=== PATIENT | male | born 1965 | race African-American/Black ===

== ENCOUNTER 2017-02-15 07:57 | Day surgery (SDC) | payer BC ==
[2017-02-11 15:42] VITALS: BMI 29.2
[~2017-02-15 07:57] MED LIST: LACTATED RINGERS 1,000 ML IV SCH
[2017-02-15] MEDS ORDERED: LIDOCAINE 1% 20 ML VIAL (10MG/ML) FOR IV START INTRADERMA ONE (08:23)
[2017-02-15 08:25] VITALS: TEMP 98.6
[2017-02-15] MEDS ORDERED: PROPOFOL 10 MG/ML 20 ML VIAL IV ONE (09:05)
--- NOTE | 2017-02-15 09:18 | P.GSHP ---
History of Present Illness H&P Date: 02/15/17 Chief Complaint: Screening colonoscopy This a 52-year-old male referred from Dr. joel. Patient presents today for screening colonoscopy. He is ever had a colonoscopy before. He denies any significant GI complaints. Past Medical History Past Medical History: Hypertension, Osteoarthritis (OA) History of Any Multi-Drug Resistant Organisms: None Reported Past Surgical History: Tonsillectomy Additional Past Surgical History / Comment(s): CYST REMOVED FROM TONSIL Past Anesthesia/Blood Transfusion Reactions: No Reported Reaction Smoking Status: Never smoker - Past Family History Mother Family Medical History: No Reported History Medications and Allergies Home Medications Medication Instructions Recorded Confirmed Type Cholecalciferol [Vitamin D3] 1,000 unit PO DAILY 02/11/17 02/11/17 History Multivitamins, Thera [Multivitamin 1 tab PO DAILY 02/11/17 02/11/17 History (formulary)] Vitamin B Complex 1 each PO DAILY 02/11/17 02/11/17 History amLODIPine [Norvasc] 10 mg PO DAILY 02/11/17 02/11/17 History Allergies Allergy/AdvReac Type Severity Reaction Status Date / Time Penicillins Allergy Dyspnea,SWE Verified 02/15/17 08:15 [facility] - Exam Vital Signs Temp Pulse Resp BP Pulse Ox 98.6 F 60 16 110/86 99 02/15/17 08:23 02/15/17 08:23 02/15/17 08:23 02/15/17 08:23 02/15/17 08:23 - General well developed, no distress - Eyes PERRL - ENT normal pinna - Neck no masses - Respiratory normal expansion - Cardiovascular Rhythm: regular - Abdomen Abdomen: soft, non tender Assessment and Plan Assessment: We'll perform screening colonoscopy.
--- NOTE | 2017-02-15 09:31 | P.OP ---
Date of Procedure: 02/15/17 Preoperative Diagnosis: Screening colonoscopy Postoperative Diagnosis: Normal Colonoscopy Procedure(s) Performed: Colonoscopy Anesthesia: MAC Surgeon: Chay Champagne Pathology: none sent Condition: stable Disposition: PACU Description of Procedure: PROCEDURE: The patient was placed on the endoscopy table in the lateral position. Digital rectal examination was performed which revealed no abnormalities. The prostate was symmetrical without nodules. Flexible colonoscope was then placed in the patient's anus and passed throughout the entire colon. The ileocecal valve was visualized. The cecum, ascending, transverse, descending and sigmoid colon were normal. The rectum was normal as well. There were no masses, polyps or diverticula noted in the entire colon. SUMMARY OF FINDINGS: Normal colonoscopy.
[2017-02-15 09:34] VITALS: BP 105/69; PULSE 66; RESP 18
== END 2017-02-15 10:10 | disposition home or self-care (01) ==
LOC: ORWHC2ENDO 07:57
PROVIDERS: ATTEND Surgery
DX: Z12.11 Encounter for screening for malignant neoplasm of colon (principal); I10 Essential (primary) hypertension; M19.90 Unspecified osteoarthritis, unspecified site; Z88.0 Allergy status to penicillin; Z79.899 Other long term (current) drug therapy
CPT/HCPCS: G0121; J2704

== ENCOUNTER → 2018-05-12 | Outpatient (CLI) | payer OTHER ==
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
== END | disposition home or self-care (01) ==
LOC: RADXRMAIN 12:34
PROVIDERS: ATTEND Emergency Medicine
DX: S43.402A Unspecified sprain of left shoulder joint, initial encounter (principal)

== ENCOUNTER → 2018-06-15 | Outpatient (CLI) | payer OTHER ==
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
== END ==
LOC: RADMRIMAIN 17:47
PROVIDERS: ATTEND Emergency Medicine
DX: M75.82 Other shoulder lesions, left shoulder (principal); M75.122 Complete rotator cuff tear or rupture of left shoulder, not specified as traumatic; M12.812 Other specific arthropathies, not elsewhere classified, left shoulder

== ENCOUNTER → 2020-11-13 | Outpatient (CLI) | payer BC ==
--- NOTE | 2020-11-13 11:31 | P.STRESS ---
- Stress Test Note Stress Test Results/Findings: Exam Performed: Exam Date: Reason for Exam: Height: Weight: Protocol: Stage: Duration of Exercise: Resting Heart Rate: Resting Blood Pressure: Maximum Achieved Heart Rate: Maximum Achieved Blood Pressure: 85% PMHR: 100% PMHR: METS: Technologist Comment: Stress Test Results/Findings: This is a 55-year-old gentleman with history of hypertension, hypercholesteremia, and family history being evaluated for symptoms of chest pain. Patient also noted to have abnormal EKG. Stress data: Baseline EKG showed sinus rhythm. Blood pressure at rest is 128/89, pulse rate of 67. Patient walked on the Tawanda protocol for 13 minutes achieving a maximum rate of 167 with a blood pressure 198/73. EKGs taken during and after exercise did not reveal any significant changes from the baseline. Patient did not experience any chest pain. No arrhythmias are noted. Final impression: #1. Negative stress test #2. Rare PVCs #3. Excellent exercise capacity #4. Patient did not express any chest pain
--- NOTE | 2020-11-13 12:32 | NM ---
EXAMINATION TYPE: NM stress cardiolite complete DATE OF EXAM: 11/13/2020 COMPARISON: NONE HISTORY: Chest pain TECHNIQUE: After the intravenous administration of 9.5 mCi Tc 99m Sestamibi - Rest images obtained 5 5 minutes post injection. The patient exercised using a JOSE protocol and 1 minute prior to peak e xercise was injected with 25 mCi Tc 99m Sestamibi - Stress images obtained 45 minutes post injection. FINDINGS: Targeted heart rate was achieved during performance of the study. Review of stress and rest SPECT allison ges demonstrates no distinct perfusion abnormality. Gated analysis shows normal wall motion with an estimated left ventricular ejection fraction of 52 %. IMPRESSION: No scintigraphic evidence for reversible ischemia
--- NOTE | 2020-11-14 10:12 | EST ---
Stress Test Results/Findings: Exam Performed: Stress Exam Date: 11/13/20 Reason for Exam: Abnormal EKG - Chest Pressure Height: 5'10' Weight: 216lbs Protocol: T[place]anda Stage: 5 Duration of Exercise: 13:09 Resting Heart Rate: 67 Resting Blood Pressure: 128/89 Maximum Achieved Heart Rate: 167 Maximum Achieved Blood Pressure: 198/73 85% PMHR: 142 100% PMHR: 167 METS: 13.5 Technologist Comment: Stress Test Results/Findings: This is a 55-year-old gentleman with history of hypertension, hypercholesteremia, and family history being evaluated for symptoms of chest pain. Patient also noted to have abnormal EKG. Stress data: Baseline EKG showed sinus rhythm. Blood pressure at rest is 128/89, pulse rate of 67. Patient walked on the Tawanda protocol for 13 minutes achieving a maximum rate of 167 with a blood pressure 198/73. EKGs taken during and after exercise did not reveal any significant changes from the baseline. Patient did not experience any chest pain. No arrhythmias are noted. Final impression: #1. Negative stress test #2. Rare PVCs #3. Excellent exercise capacity #4. Patient did not express any chest pain MTDD
== END | disposition home or self-care (01) ==
LOC: RADNMMAIN 11-11 07:49
PROVIDERS: ATTEND Family Medicine
DX: R07.89 Other chest pain (principal)
CPT/HCPCS: 93017; 78452; A9500

== ENCOUNTER → 2022-02-03 | Outpatient (CLI) | payer BC ==
[2022-02-03 14:31] LABS: HCT 46.1 % (39.6-50.0); HGB 15.2 g/dL (13.0-17.0); MCH 27.9 pg (27.0-32.0); MCV 84.7 fL (80.0-97.0); Mean Platelet Volume 10.2 fL (9.5-12.2); NRBC Per 100 WBC 0 /100 WBCS (0.0-0.0); Platelet Count 233 X 10*3/uL (140-440); RBC 5.44 X 10*6/uL (4.40-5.60); WBC 2.93 X 10*3/uL (4.50-10.00)
[2022-02-03 14:51] LABS: ALT 42 U/L (10-49); AST 34 U/L (14-35); African American GFR (CKD) 97.8 (60.0-200.0); Albumin 4.4 g/dL (3.8-4.9); Albumin/Globulin Ratio 1.69 (1.60-3.17); Alkaline Phosphatase 54 U/L (41-126); Blood Urea Nitrogen 12.2 mg/dL (9.0-27.0); Calcium 9.8 mg/dL (8.7-10.3); Carbon Dioxide 28.7 mmol/L (20.0-27.5); Chloride 102 mmol/L (96-109); Chol/HDL Ratio 3.29 Ratio; Globulin 2.6 g/dL (1.6-3.3); Glucose 101 mg/dL (70-110); LDL Cholesterol,Calculated 114.8 mg/dL (0.0-131.0); Non-African American GFR(CKD) 84.4 (60.0-200.0); Potassium 4.4 mmol/L (3.5-5.5); Sodium 140 mmol/L (135-145); VLDL Calculation 14.04 mg/dL (5.00-40.00)
== END | disposition home or self-care (01) ==
LOC: LABWHC1 09:35
PROVIDERS: ATTEND Family Medicine
DX: I10 Essential (primary) hypertension (principal); E03.9 Hypothyroidism, unspecified; D72.819 Decreased white blood cell count, unspecified; E55.9 Vitamin D deficiency, unspecified; R94.6 Abnormal results of thyroid function studies
CPT/HCPCS: 36415; 80053; 80061; 83036; 84443; 85027